=== PATIENT | female | born 1930 | race Caucasian/White ===

== ENCOUNTER → 2017-01-21 | Outpatient (CLI) | payer MEDICARE, OTHER ==
[~2017-01-21] MED LIST: AMLO10TA PO; ASP325TEC PO; ATOR40TA70 PO; CHLO25TA2 PO; CHOL2000 PO; LOSA100T7 PO; OMEG1CAP51 PO; OMEP20CA12 PO; ROPI1TAB2 PO
== END ==
LOC: CARD 12:54
PROVIDERS: ATTEND Physician Assistant
DX: I25.10 Atherosclerotic heart disease of native coronary artery without angina pectoris (principal); I65.23 Occlusion and stenosis of bilateral carotid arteries; I10 Essential (primary) hypertension; E78.2 Mixed hyperlipidemia
CPT/HCPCS: 93306